=== PATIENT | male | born 1995 | race Asian ===

== ENCOUNTER 2022-10-05 19:57 | Emergency (ER) | payer OTHER ==
[2022-10-05] MEDS ORDERED: SODIUM CHLORIDE 0.9% 1,000 ML IV STA (20:22)
[2022-10-05] MEDS ORDERED: ONDANSETRON 4 MG/2 ML VIAL IVP STA (20:22)
--- NOTE | 2022-10-05 20:25 | ED Physician Documentation ---
History of Present Illness - Stated complaint Stated Complaint: DIARRHEA/VOMIT - Chief complaint Chief Complaint: General - Additonal information Additional information: 27-year-old male presents emergency department for evaluation of vomiting and diarrhea that began yesterday. Has had multiple episodes of diarrhea and has been unable to keep anything down today. He initially had fevers at the onset of his symptoms yesterday but none today. No bloody output. No similar in others at home. No recent travel. He denies abdominal pain. He is here at the behest of his . Denies any pertinent past medical history. Takes no prescribed medications. Denies alcohol or tobacco use. Review of Systems Constitutional: reports: Fever GI: reports: Vomiting, Diarrhea. denies: Abdominal Pain, Hematemesis, Bloody / black stool : reports: Reviewed and negative Skin: reports: Reviewed and negative PD PAST MEDICAL HISTORY - Past Medical History Past Medical History: No Cardiovascular: None Respiratory: None Neuro: None Endocrine/Autoimmune: None GI: None : None HEENT: None Psych: None Musculoskeletal: None Derm: None - Past Surgical History Past Surgical History: No - Present Medications Home Medications: Ambulatory Orders Medication Instructions Recorded Confirmed Ondansetron Odt [Zofran] 4 mg TL Q6H PRN #10 tablet 10/05/22 - Allergies Allergies/Adverse Reactions: Allergies Allergy/AdvReac Type Severity Reaction Status Date / Time No Known Drug Allergies Allergy Verified 10/05/22 20:06 - Social History Does the pt smoke?: Yes Smoking Status: Current every day smoker Does the pt drink ETOH?: No Does the pt have substance abuse?: No - Immunizations Immunizations are current?: Yes - POLST Patient has POLST: No PD ED PE NORMAL - General General: Alert and oriented X 3, No acute distress - HEENT HEENT: PERRL - Neck Neck: Supple, no meningeal sign, No adenopathy - Cardiac Cardiac: RRR, No murmur - Respiratory Respiratory: No respiratory distress, Clear bilaterally - Abdomen Abdomen: Normal bowel sounds, Soft. No: Non tender (Unable to elicit any significant abdominal tenderness with bladder deep patient or percussion.) - Back Back: No CVA TTP - Derm Derm: Warm and dry - Neuro Neuro: Alert and oriented X 3 Eye Opening: Spontaneous Motor: Obeys Commands Verbal: Oriented GCS Score: 15 Results - Vitals Vitals: Vital Signs - 24 hr 10/05/22 19:58 Temperature 36.8 C Heart Rate 94 Respiratory 17 Rate Blood Pressure 123/83 H O2 Saturation 98 Oxygen O2 Source Room air PD Medical Decision Making - ED course Complexity details: re-evaluated patient, d/w patient ED course: 27-year-old male presents emergency department for evaluation of 24 hours nausea vomiting and diarrhea. Has been unable to keep anything down since yesterday evening. On exam he does appear well. He has no fevers, tachycardia or hypotension. His abdominal exam was benign without any significant tenderness elicited. I discussed with patient likely etiology of this to include viral illness. He was given a single dose of IV Zofran as well as a liter of IV fluids. Following this he was able to sip 250 mL of clear liquids without any vomiting or nausea. Given this he is feeling better and does request discharge home. I have written a prescription for Zofran to be filled at his preferred pharmacy. I deferred labs or imaging today given his otherwise well appearance and benign exam. Clinically I am not suspicious for occult surgical process such as acute appendicitis. The usual emergent return precautions were discussed for worsening symptoms Departure - Departure Disposition: Home, Self Care Clinical Impression: Nausea vomiting and diarrhea Condition: Stable Record reviewed to determine appropriate education?: Yes Prescriptions: Ondansetron Odt [Zofran] 4 mg TL Q6H PRN #10 tablet PRN Reason: Nausea / Vomiting Comments: You are seen today in the emergency department because yesterday began having vomiting and diarrhea. As discussed at the bedside your clinical exam was rather reassuring. Most causes of vomiting and diarrhea like you have had are usually due to a virus and will improve over time even without medical treatment. Here in the emergency department we did give you a single dose of Zofran and nausea medicine which has allowed you to keep some sips of soda down. We did al so give you some IV fluids. In general I expect that you are going to continue to get better. [place] You can take this 2-3 times a day as needed for nausea. I encourage you to have frequent sips of clear liquids such as water, broth, juice over the next 24 hours. If nausea is improving then you can expand your diet to simple foods such as bananas, rice, applesauce or toast. I expect that your diarrhea will self resolve. If you find you are still having persistent diarrhea after 3 to 4 days it is a appropriate to consider a single dose of an [id number] medication like Imodium. Use this cautiously as it can cause constipation. If at any point you find that your symptoms are worsening, you have uncontrolled vomiting, any black or bloody stools then you should return immediately to the ER for second evaluation
[2022-10-05 21:45] VITALS: BP 134/79
== END 2022-10-05 21:46 | disposition home or self-care (01) ==
LOC: ED 19:57
DX: R11.2 Nausea with vomiting, unspecified (principal); R19.7 Diarrhea, unspecified; F17.200 Nicotine dependence, unspecified, uncomplicated
CPT/HCPCS: 96374; 99283